=== PATIENT | male | born 1995 ===

== ENCOUNTER 2024-04-28 17:47 | Emergency (ER) | payer BC, OTHER ==
[2024-04-28] MEDS ORDERED: Boostrix 0.5 ML (Tdap) VIAL (>/=7 yrs of age) ONE (18:46)
[2024-04-28] MEDS ORDERED: Acetaminophen 500 MG TAB ONE (18:46)
[2024-04-28] MEDS ORDERED: Ketorolac Tromethamine 30 MG (1 mL) VIAL ONE (18:46)
== END 2024-04-28 20:09 | disposition home or self-care (01) ==
LOC: ERS 17:47
DX: S42.032A Displaced fracture of lateral end of left clavicle, initial encounter for closed fracture (principal); Z23 Encounter for immunization; V00.831A Fall from motorized mobility scooter, initial encounter
CPT/HCPCS: 70450; 72125; 90471; 90715; 93005; 96372; J1885